=== PATIENT | female | born 1995 | race Two or more races ===

== ENCOUNTER 2024-12-30 12:21 | Outpatient (CLI) | payer OTHER | END 2024-12-30 12:46 | disposition home or self-care (01) | LOC: MAMO-SONO 12:21 | PROVIDERS: ATTEND Obstetrics & Gynecology | DX: N60.09 Solitary cyst of unspecified breast (principal) ==

== ENCOUNTER 2025-01-01 11:37 | Outpatient (CLI) | payer OTHER ==
[2025-01-01 12:33] LABS: HEMATOCRIT 39.5 % (36.0-45.00); HEMOGLOBIN 13.5 g/dL (12.0-15.00); MEAN CELL VOLUME 95.4 fL (80.00-100.00); MEAN CORPUSCULAR HEMOGLOBIN 32.6 pg (27.00-32.0); MEAN CORPUSCULAR HGB CONC 34.2 g/dl (32.0-36.0); PLATELET COUNT 306 K/uL (150-450); RED BLOOD COUNT 4.14 M/uL (4.00-6.00); RED CELL DISTRIBUTION WIDTH 12.8 % (11.5-14.5)
[2025-01-03 09:15] LABS: ESTRADIOL SERUM 26.9 pg/mL (.); FOLLICLE STIMULATING HORMONE 7.3 mIU/mL (.); PROGESTERONA 0.1 ng/mL (.)
== END 2025-01-01 11:53 | disposition home or self-care (01) ==
LOC: LAB 11:37
PROVIDERS: ATTEND Obstetrics & Gynecology
DX: D64.9 Anemia, unspecified (principal); Z12.11 Encounter for screening for malignant neoplasm of colon; E03.8 Other specified hypothyroidism; N95.1 Menopausal and female climacteric states; I10 Essential (primary) hypertension; C51.9 Malignant neoplasm of vulva, unspecified; N30.00 Acute cystitis without hematuria; E83.51 Hypocalcemia; A64 Unspecified sexually transmitted disease; N39.0 Urinary tract infection, site not specified; R97.8 Other abnormal tumor markers; R79.89 Other specified abnormal findings of blood chemistry; E55.9 Vitamin D deficiency, unspecified; A60.9 Anogenital herpesviral infection, unspecified